=== PATIENT | female | born 1990 | race Caucasian/White ===

== ENCOUNTER 2020-01-03 15:43 | Emergency (ER) | payer OTHER ==
[~2020-01-03] VITALS: Ht 160 cm; Wt 105.0 kg
[2020-01-03 17:57] VITALS: BP 123/80
--- NOTE | 2020-01-03 18:06 | PHYS DOC ---
General Adult EDM: Chief Complaint: FEVER HPI: HPI: The history was obtained from the patient. Patient is a 21-year-old female with PMH reported chronic kidney disease who presents with a chief complaint of fever. Patient states she was sent home from work today due to a documented fever. She states she works in [employer] in the routinely check temperatures prior to working. States she has document temperature of 102.0. This is approximately 3 hours ago. She states she does not take any medication prior to arrival. She denies any symptoms. She notes that she did have a cough approximately 2 weeks ago that she was seen at an ER for. States she was prescribed amoxicillin and has completed this course. She states her cough is improved significantly. She does note tobacco abuse. She denies any symptoms at this time. Including chest pain, shortness of breath, syncope, flank pain, back pain, urinary symptoms, nausea, or vomiting. She states that she feels completely fine and is only here because work encouraged her to report. No other complaints. Review of Systems: Review of Systems: Constitutional: Denies fever or chills. [] Eyes: Denies change in visual acuity. [] HENT: Denies nasal congestion or sore throat. [] Respiratory: Denies cough or shortness of breath. [] Cardiovascular: Denies chest pain or edema. [] GI: Denies abdominal pain, nausea, vomiting, bloody stools or diarrhea. [] : Denies dysuria. [] Musculoskeletal: Denies back pain or joint pain. [] Integument: Denies rash. [] Neurologic: Denies headache, focal weakness or sensory changes. [] Endocrine: Denies polyuria or polydipsia. [] Lymphatic: Denies swollen glands. [] Psychiatric: Denies depression or anxiety. [] Heart Score: Risk Factors: Risk Factors: DM, Current or recent (<one month) smoker, HTN, HLP, family history of CAD, obesity. Risk Scores: Score 0 - 3: 2.5% MACE over next 6 weeks - Discharge Home Score 4 - 6: 20.3% MACE over next 6 weeks - Admit for Clinical Observation Score 7 - 10: 72.7% MACE over next 6 weeks - Early Invasive Strategies Allergies: Allergies: Allergies Coded Allergies Type Severity Reaction Last Updated Verified quetiapine Allergy Intermediate 01/03/20 Yes Physical Exam: PE: Constitutional: Well developed, well nourished, no acute distress, non-toxic appearance. [] HENT: Normocephalic, atraumatic, bilateral external ears normal, oropharynx moist, no oral exudates, nose normal. [] Eyes: PERRLA, EOMI, conjunctiva normal, no discharge. [] Neck: Normal range of motion, no tenderness, supple, no stridor. [] Cardiovascular:Heart rate regular rhythm, no murmur [] Lungs & Thorax: Bilateral breath sounds clear to auscultation [] Abdomen: soft, no tenderness, no masses, no pulsatile masses. [] Skin: Warm, dry, no erythema, no rash. [] Back: No tenderness, no CVA tenderness. [] Extremities: No tenderness, no cyanosis, no clubbing, ROM intact, no edema. [] Neurologic: Alert and oriented X 3, normal motor function, normal sensory function, no focal deficits noted. [] Psychologic: Affect normal, judgement normal, mood normal. [] Current Patient Data: Vital Signs: Vital Signs Date Time Temp Pulse Resp B/P (MAP) Pulse Ox O2 Delivery O2 Flow Rate FiO2 01/03/20 17:57 98.4 76 16 123/80 (94) 98 Room Air 98.4 Vital Signs Date Time Temp Pulse Resp B/P (MAP) Pulse Ox O2 Delivery O2 Flow Rate FiO2 01/03/20 17:57 98.4 76 16 123/80 (94) 98 Room Air 98.4 EKG: EKG: [] Radiology/Procedures: Radiology/Procedures: [] Course & Med Decision Making: Course & Med Decision Making Pertinent Labs and Imaging studies reviewed. (See chart for details) Patient is a well-appearing 29-year-old female who presents with chief complaint of fever while at work. Signs today have been unremarkable including afebrile. Patient states her cough has significantly improved. Clear lung sounds. Normal oxygen level on room air. Not tachypneic. Had not feel repeat chest x- ray is indicated. For work purposes outpatient COVID testing will be obtained. She will be notified of results. Return precautions were discussed and understood. Patient is agreeable to this plan. Stable for discharge home. COVID-19 CRITERIA: The patient was evaluated during the global COVID-19 pandemic, and that diagnosis was suspected/considered upon their initial presentation. Their evaluation, treatment and testing was consistent with current guidelines for patients who present with complaints or symptoms that may be related to COVID-19. Lala Disclaimer: Lala Disclaimer: This electronic medical record was generated, in whole or in part, using a voice recognition dictation system. Departure Departure Impression: Primary Impression: Fever Qualified Codes: R50.9 - Fever, unspecified Additional Impression: Suspected COVID-19 virus infection Disposition: 01 HOME, SELF-CARE Condition: GOOD Referrals: NO PCP (PCP) Patient Instructions: Fever Additional Instructions: [facility] [address] [place] [address] [facility] [address] [place] [address] [facility] [address] [place] [address] [facility] [address] [place] [address] [facility] [address] [place] [address] [address] [place] [address] [facility] [address] [place] [address] [facility] [address] [place] [address] [facility] [address] [place] [address] [facility] [address] [place] [address] You have been tested for or diagnosed with COVID-19. It is an infection caused by a new type of coronavirus. COVID-19 will cause cold-like or mild flu symptoms in most. It can cause more severe symptoms like problems breathing in some. There is no treatment for COVID-19. The body will clear the infection over time. Self-care will help to ease discomfort. Steps to Take: Self-Care Rest as needed. Healthy habits may help you feel better. Steps include: Choose healthy foods including fruits and vegetables. Drink water throughout the day. Get plenty of sleep each night. If you smoke, try to quit. It may ease breathing. Avoid alcohol. Keep Others Healthy The virus can spread to others. Droplets are released every time you sneeze or cough. The droplets can get into the mouth, nose, or eyes of people near you and lead to infection. To lower the chances of spreading COVID-19 to others: Stay at home until your doctor has said it is safe to leave. If you tested positive this will mean staying isolated until both of the following are true: At least 7 days have passed since the start of illness. You are free of fever for at least 72 hours without the use of medicine. During this time: - Avoid public areas, events, or transportation. Do not return to work or school until your doctor has said it is safe to do so. - Call ahead if you need to go to a medical center. Let them know you may have COVID-19. It will help them guide you where to go. They may also ask you to wear a facemask when you come to the office. - If you call for emergency medical services, let them know you may have COVID- 19. While at home: - Try to avoid close contact with others. Stay about 6 feet away. - If possible, spend most of your time in a separate room from others. - Use a face mask if you will be in close contact with others such as sharing a room or vehicle. - Have someone wipe down common surfaces in the home. Use household carrier associate every day on areas like doorknobs, counters, or sinks. - Cough or sneeze into a tissue. Throw the tissue away right after use. If a tissue is not available, cough or sneeze into your elbow. - Wash your hands often. Wash them after sneezing or coughing. Use soap and water and wash for at least 20 seconds. Alcohol based hand telephone cleaner can be used if soap and water is not available. - Do not prepare food for others. Avoid sharing personal items like forks, spoons, or toothbrushes. - Avoid close contact with pets while you are sick. There is no evidence of the virus passing to pets. This is a safety step until more is known about this virus. Isolation can be frustrating. Social interaction can help. Keep in touch with friends and family through phone and tech options. You can still interact with others in your home, just keep a safe distance of about 6 feet. Follow-up: Your doctors office will check in with you to see if there are any changes in your health. You may be asked to keep track of symptoms to share with them. They will also let you know when you are clear to be in public again. Problems to Look Out For: Contact your doctor if your recovery is not going as you expect. Get emergency care if you have problems such as: - Trouble breathing - Nonstop chest pain or pressure - Changes in awareness, confusion, or problems waking - Lips or face have bluish color - Worsening of symptoms If you think you have an emergency, call for emergency medical services right away. As taken from [facility] Justicifation of Admission Dx: Justifications for Admission: Justification of Admission Dx: N/A SIL DILLARD DO Jan 03, 2020 18:06
--- NOTE | 2020-01-06 10:42 | NUR ---
IP: Informed pt of negative COVID results. Pt verbalized understanding.
== END 2020-01-03 18:26 | disposition home or self-care (01) ==
LOC: ER 15:43
DX: R50.9 Fever, unspecified (principal); Z20.828 Contact with and (suspected) exposure to other viral communicable diseases; R05 Cough; N18.9 Chronic kidney disease, unspecified; Z88.8 Allergy status to other drugs, medicaments and biological substances
CPT/HCPCS: 99283; U0003

== ENCOUNTER 2021-03-02 08:40 | Emergency (ER) | payer OTHER ==
[~2021-03-02] VITALS: Ht 160 cm; Wt 90.0 kg
--- NOTE | 2021-03-02 08:57 | PHYS DOC ---
Past Medical History Past Medical History: Renal Disease Past Surgical History: Smoking Status: Current Every Day Smoker Alcohol Use: None General Adult EDM: Chief Complaint: NAUSEA/VOMITING/DIARRHEA HPI: HPI: Patient is a 30 year old female who is here with nausea and vomiting, which she reports began early this morning. She reports that she has had several days of fevers and chills, nonproductive cough, sore throat, headache and diffuse myalg ias and diffuse bilateral back and flank pain. She denies diarrhea. She reports no bowel movement for 5 days. She is passing some gas. She does report suprapubic and lower abdominal discomfort. She denies urinary symptoms. She denies hematemesis. She is not vaccinated against Covid or influenza. She denies any specific known sick contacts. She denies any recent travel. Reports that she could not stop throwing up all morning so she decided to come in. Review of Systems: Review of Systems: Constitutional: Reports fevers and chills Eyes: Denies change in visual acuity. [] HENT: Reports nasal congestion and sore throat. Respiratory: Denies dyspnea. She does report a dry cough. Cardiovascular: Denies chest pain or edema. [] GI: She reports abdominal discomfort, constipation, nausea and vomiting. : Denies urinary symptoms. Musculoskeletal: Reports diffuse myalgias and diffuse back and flank pain. No joint pain or swelling. Integument: Denies rash. [] Neurologic: Does report headache. Denies dizziness. Denies focal weakness or numbness. Denies syncope. Endocrine: Denies polyuria or polydipsia. [] Lymphatic: Denies swollen glands. [] Psychiatric: Denies acute mood changes. Heart Score: C/O Chest Pain: No Risk Factors: Risk Factors: DM, Current or recent (<one month) smoker, HTN, HLP, family history of CAD, obesity. Risk Scores: Score 0 - 3: 2.5% MACE over next 6 weeks - Discharge Home Score 4 - 6: 20.3% MACE over next 6 weeks - Admit for Clinical Observation Score 7 - 10: 72.7% MACE over next 6 weeks - Early Invasive Strategies Allergies: Allergies: Allergies Coded Allergies Type Severity Reaction Last Updated Verified quetiapine Allergy Intermediate 01/03/20 Yes Physical Exam: PE: Constitutional: Well developed, well nourished, no acute distress, non-toxic appearance. [] HENT: Normocephalic, atraumatic, oropharynx is patent, clear, no erythema, no exudate, mucous membranes are moist. Eyes: Sclera are clear and anicteric. Neck: Normal range of motion, no tenderness, supple, no meningismus, trachea is midline. Cardiovascular:Heart rate regular rhythm, +2 radial and posterior tibial pulses bilaterally. She is well-perfused appearing. No peripheral edema. Lungs & Thorax: Bilateral breath sounds clear to auscultation, no rales, rhonchi or wheezes. No stridor. Equal chest rise. No evidence of distress. Abdomen: Abdomen is soft, nondistended, normal bowel sounds, diffuse, nonfocal lower abdominal and suprapubic tenderness, no rebound tenderness, mild, inconsistent voluntary guarding. Right CVA tenderness. No palpable mass or organomegaly. Skin: Warm, dry, no erythema, no rash. [] Back: No tenderness, right CVA tenderness Extremities: No tenderness, no cyanosis, no clubbing, ROM intact, no edema. [] Neurologic: Alert and oriented X 3, normal motor function, gait is steady. Speech is fluent. Psychologic: Affect is flat. She is cooperative. EKG: EKG: [] Radiology/Procedures: Radiology/Procedures: IMAGING REPORT Signed PATIENT: YARI PIERRE ACCOUNT: [id number] : 1990 LOCATION: ER AGE: 30 SEX: F EXAM STATUS: REG ER ORD. PHYSICIAN: NICHOLE QUIÑONES DO REASON: abdominal pain, fever, vomiting PROCEDURE: CT ABD PELV W/ IV CONTRST ONLY CT of the abdomen and pelvis with contrast 03/02/2021 11:34 AM Indication: Reason: abdominal pain, fever, vomiting / Comparison study: None Technique: Multidetector CT imaging of the abdomen and pelvis was performed following the administration of IV contrast. Findings: The partially visualized lung bases demonstrate no acute abnormality. Liver and gallbladder are unremarkable. Pancreas is grossly unremarkable. The adrenal glands are grossly unremarkable. The right kidney is within normal limits. There is mild perinephric stranding surrounding the left kidney, is asymmetric with respect to the contralateral side. There are areas of decreased renal cortical attenuation seen within the left kidney, most prominent in the inferior pole. Findings could represent focal pyelonephritis, areas of lobar nephronia, or combination thereof. There is no significant hydronephrosis. The ureters are normal in course and caliber. No nephrolithiasis is seen.. The bladder is unremarkable. Uterus and adnexa are unremarkable for age. No bowel obstruction is seen. No acute inflammatory changes involving the bowel are identified. The appendix is unremarkable. Small amount of nonspecific free fluid is seen in the pelvis. No pneumoperitoneum is seen. No acute osseous abnormality is seen. IMPRESSION: 1.Asymmetrical left perinephric stranding, with associated areas of decreased renal cortical attenuation, particularly in the inferior pole. Findings may represent pyelonephritis versus areas of developing lobar nephronia. Correlate with urinalysis. 2. No other acute intra-abdominal abnormality is identified. CT DOSING PQRS STATEMENT: One or more of the following individualized dose reduction techniques were utilized for this examination: 1. Automated exposure control 2. Adjustment of the mA and/or kV according to patient size 3. Use of iterative reconstruction technique Electronically signed by: Tristan Jackson MD (03/02/2021 11:41 AM) [id number] DICTATED and SIGNED BY: TRISTAN JACKSON MD DATE: 03/02/21 [id number] 0 Course & Med Decision Making: Course & Med Decision Making Pertinent Labs and Imaging studies reviewed. (See chart for details) The patient is given 2 L of IV fluid. She is given Zofran, Toradol, p.o. Yeoman. Vomiting has resolved. She is tolerating p.o. fluids and medications. She is given IV Rocephin. CT of the abdomen pelvis does indicate pyelonephritis. Clinically, this appears to be the underlying etiology of her symptoms. She is feeling much better and is comfortable with the plan for discharge home. She requests a work note for the rest of the week, so this is provided to her here. She understands that her urine culture is pending, and she may be notified of any need to change antibiotics based on the results of this. She appears stable for outpatient treatment of pyelonephritis. I have given her home care instructions and given strict return precautions. She is comfortable with the plan of care and verbalizes understanding. Lala Disclaimer: Lala Disclaimer: This electronic medical record was generated, in whole or in part, using a voice recognition dictation system. Departure Departure Impression: Primary Impression: Acute pyelonephritis Disposition: HOME / SELF CARE / HOMELESS Condition: STABLE Referrals: NO PCP (PCP) Patient Instructions: Pyelonephritis, Adult Additional Instructions: Take the full course of antibiotics. Take the pain medicine and nausea medicine as needed. Stay well-hydrated, drink plenty of clear fluids. Get plenty of rest. Return to the ER immediately for any uncontrolled vomiting, dehydration, if you are unable to tolerate any medications, if you have more severe pain, weakness or any other concerns. The pain medication will have Tylenol in it, so please do not take extra Tylenol with this. You may take [id number] ibuprofen for pain and fever as well. Your urine culture is currently pending, and you will be notified of any need to change your antibiotics based on this. Follow-up with your primary care physician. Scripts Cefdinir (CEFDINIR) 300 Mg Capsule 1 CAP PO BID for 10 Days, #20 CAP Prov: NICHOLE QUIÑONES DO 03/02/21 Ondansetron Hcl (ZOFRAN) 4 Mg Tablet 4 MG PO PRN TID PRN for VOMITING, #20 EA nausea/vomiting Prov: NICHOLE QUIÑONES DO 03/02/21 Hydrocodone Bit/Acetaminophen (HYDROCODONE-APAP 5-325 ) 1 Tab Tablet 1 TAB PO PRN Q6HRS PRN for PAIN, #15 TAB 0 Refills Prov: NICHOLE QUIÑONES DO 03/02/21 NICHOLE QUIÑONES DO Mar 02, 2021 08:57
[2021-03-02 09:05] VITALS: BP 140/99
[2021-03-02] MEDS ORDERED: ONDANSETRON PF 4 MG/2 ML VIAL. ONE (09:20)
[2021-03-02] MEDS ORDERED: ONDANSETRON PF 4 MG/2 ML VIAL. IVP ONE (09:30)
[2021-03-02] MEDS ORDERED: IV NORMAL SALINE 1000ML BAG 1,000 ML IV ONE ×2 (09:30→11:15)
[2021-03-02 09:52] LABS: BASO % 0 % (0-3); EOS # 0.1 x10^3/uL (0.0-0.7); EOS % 1 % (0-3); HEMATOCRIT 36.3 % (36.0-47.0); HEMOGLOBIN 12.1 g/dL (12.0-15.5); LYMPH % 11 % (24-48); MEAN CORPUSCULAR HEMOGLOBIN 29 pg (25-35); MEAN CORPUSCULAR HGB CONC 33 g/dL (31-37); MEAN CORPUSCULAR VOLUME 86 fL (79-100); MONO # 2.7 x10^3/uL (0.0-1.1); MONO % 14 % (0-9); NEUT # 13.6 x10^3/uL (1.8-7.7); NEUT % 74 % (31-73); PLATELET COUNT 389 x10^3/uL (140-400); RED BLOOD COUNT 4.24 x10^6/uL (3.50-5.40); WHITE BLOOD COUNT 18.4 x10^3/uL (4.0-11.0)
[2021-03-02 09:54] LABS: BILIRUBIN,URINE NEGATIVE (NEG); CLARITY,URINE CLOUDY; COLOR,URINE YELLOW; NITRITE,URINE POSITIVE (NEG); PROTEIN,URINE 100 mg/dL (NEG-TRACE)
[2021-03-02 10:07] LABS: BACTERIA,URINE MANY /HPF (0-FEW); RBC,URINE FIELD OBSCURED /HPF (0-2); WBC,URINE TNTC /HPF (0-4)
[2021-03-02 10:15] LABS: BARBITURATES NEG (NEG); BENZODIAZEPINES NEG (NEG); CANNABINOIDS NEG (NEG); COCAINE NEG (NEG); METHADONE NEG (NEG); OPIATES NEG (NEG); PHENCYCLIDINE NEG (NEG)
[2021-03-02 10:18] LABS: INFLUENZA A PATIENT NEGATIVE (NEGATIVE); INFLUENZA B PATIENT NEGATIVE (NEGATIVE)
[2021-03-02 10:19] LABS: AMPHETAMINE/METHAMPHETAMINE NEG (NEG)
[2021-03-02 10:24] LABS: PREG TEST PT QUAL NEGATIVE (NEG)
[2021-03-02 10:29] LABS: CALCIUM 9.1 mg/dL (8.5-10.1); CREATININE 0.7 mg/dL (0.6-1.0); GFR 98.3; POTASSIUM 3.3 mmol/L (3.5-5.1)
[2021-03-02 10:35] LABS: ALBUMIN 3.2 g/dL (3.4-5.0); ALBUMIN/GLOBULIN RATIO 0.7 (1.0-1.7); MAGNESIUM 1.9 mg/dL (1.8-2.4); TOTAL BILIRUBIN 0.4 mg/dL (0.2-1.0)
[2021-03-02 10:49] LABS: MONONUCLEOSIS PATIENT NEGATIVE (NEGATIVE)
[2021-03-02] MEDS ORDERED: cefTRIAXone IV Push 1 GM VIAL. IVP ONE (11:00)
[2021-03-02 11:03] LABS: % BANDS 10 % (0-9); % METAS 1 % (0-0)
[2021-03-02 11:04] LABS: % LYMPHS 12 % (24-48); % MONOS 12 % (0-10)
[2021-03-02 11:05] LABS: % SEGS 65 % (35-66); PLT ESTIMATE ADEQUATE (ADEQUATE)
[2021-03-02] MEDS ORDERED: IOHEXOL 300 MG/ML 100ML VIAL. IV ONE (11:15)
[2021-03-02] MEDS ORDERED: KETOROLAC 15 MG/ML VIAL. IVP ONE (11:15)
[2021-03-02] MEDS ORDERED: CONTRAST GIVEN. MC PRN (11:15)
--- NOTE | 2021-03-02 11:44 | RAD ---
CT of the abdomen and pelvis with contrast 03/02/2021 11:34 AM Indication: Reason: abdominal pain, fever, vomiting / Comparison study: None Technique: Multidetector CT imaging of the abdomen and pelvis was performed following the administrat ion of IV contrast. Findings: The partially visualized lung bases demonstrate no acute abnormality. Liver and gallbladder are unremarkable. Pancreas is grossly unremarkable. The adrenal glands are grossly unremarkable. The right kidney is wi thin normal limits. There is mild perinephric stranding surrounding the left kidney, is asymmetric with respect to the co ntralateral side. There are areas of decreased renal cortical attenuation seen within the left kidney , most prominent in the inferior pole. Findings could represent focal pyelonephritis, areas of lobar nephronia, or combination thereof. There is no significant hydronephrosis. The ureters are normal in course and caliber. No nephrolithiasis is seen.. The bladder is unremarkable. Uterus and adnexa are u nremarkable for age. No bowel obstruction is seen. No acute inflammatory changes involving the bowel are identified. The appendix is unremarkable. Small amount of nonspecific free fluid is seen in the p faith. No pneumoperitoneum is seen. No acute osseous abnormality is seen. IMPRESSION: 1.Asymmetrical left perinephric stranding, with associated areas of decreased renal cortical attenuat ion, particularly in the inferior pole. Findings may represent pyelonephritis versus areas of develop ing lobar nephronia. Correlate with urinalysis. 2. No other acute intra-abdominal abnormality is identified. CT DOSING PQRS STATEMENT: One or more of the following individualized dose reduction techniques were utilized for this examinat ion: 1. Automated exposure control 2. Adjustment of the mA and/or kV according to patient size 3. Use of iterative reconstruction technique Electronically signed by: Tristan Cabrera MD (03/02/2021 11:41 AM) [id number]
[2021-03-02] MEDS ORDERED: HYDROcodone/APAP 5/325MG 1 TAB TABLET PO ONE (13:15)
[2021-03-02] MEDS ORDERED: CEFD300C PO (13:25)
[2021-03-02] MEDS ORDERED: HYDR-2761 PO (13:25)
[2021-03-02] MEDS ORDERED: ONDA4TAB7 PO (13:25)
--- NOTE | 2021-03-02 16:12 | NUR ---
IP: Attempted to contact pt concerning covid results. Phone number provided is a wrong number per person who answered the phone.
== END 2021-03-02 13:45 | disposition home or self-care (01) ==
LOC: ER 08:40
DX: N10 Acute pyelonephritis (principal); Z20.822 Contact with and (suspected) exposure to COVID-19; F17.200 Nicotine dependence, unspecified, uncomplicated; Z88.8 Allergy status to other drugs, medicaments and biological substances
CPT/HCPCS: 36415; 74177; 80053; 80307; 81001; 81025; 82550; 83690; 83735; 84703; 85007; 85025; 86308; 87070; 87086; 87426; 87804; 87880; 96361; 96374; 96375; 99285; J0696; J1885; J2405; J7030; Q9967; U0003; U0005; 87077; 87186